=== PATIENT | female | born 1955 | race Caucasian/White ===

== ENCOUNTER 2023-09-18 08:48 | Inpatient (IN) ==
[2023-09-18] MEDS: 0.9 % SODIUM CHLORIDE 500 ML IV ONE ×3 (09:20→10:46)
[2023-09-18 09:45] LABS: Basophils # (Auto) 0.04 K/mcL (0.00-0.30); Basophils % (Auto) 0.4 % (0.0-2.0); Eosinophils # (Auto) 0.04 K/mcL (0.00-0.70); Eosinophils % (Auto) 0.4 % (0.0-7.0); Hematocrit 28.4 % (34.1-44.9); Hemoglobin 9.1 g/dL (11.2-15.7); Lymphocytes # (Auto) 1.49 K/mcL (1.50-4.80); Lymphocytes % (Auto) 16.4 % (15.5-49.0); Mean Cell Volume 120.9 fL (80.0-100.0); Mean Platelet Volume 10.8 fL (8.8-12.5); Monocytes # (Auto) 1.56 K/mcL (0.10-0.90); Monocytes % (Auto) 17.2 % (1.0-12.0); Platelet Count 156 K/mcL (140-440); RBC 2.35 M/mcL (3.59-5.38); Red Cell Distribution Width 17.3 % (11.5-14.5); WBC 9.1 K/mcL (4.5-11.0)
[2023-09-18 09:53] LABS: ALT/SGPT 115 U/L (<40); AST/SGOT 70 U/L (<32); Albumin/Globulin Ratio 1.5 (1.0-2.3); Alkaline Phosphatase 115 U/L (39-117); Bilirubin,Total 1.1 mg/dL (0.1-1.0); Blood Urea Nitrogen 32 mg/dL (8-23); Calcium 9.7 mg/dL (8.6-10.4); Carbon Dioxide 12 mmol/L (22-30); Chloride 79 mmol/L (96-108); Globulin 2.7 gm/dL (2.2-3.7); Glomerular Filtration Rate 27; Glucose 102 mg/dL (70-105)
[2023-09-18 10:04] LABS: Alcohol, Blood < 10.1 mg/dL; Alcohol,Blood < 0.010 gm/dL (<0.010)
[2023-09-18 10:32] LABS: INR 2.6 (0.9-1.1); Prothrombin Time 28.7 sec (11.9-14.5)
[2023-09-18] MEDS: THIAMINE 500 MG in 0.9 % SODIUM CHLORIDE 50 ML IV ONE (11:00)
[2023-09-18] MEDS: 0.9 % SODIUM CHLORIDE 1,000 ML IV ONE ×2 (11:54→14:46)
[2023-09-18] MEDS: PIPERACILLIN SODIUM/TAZOBACTAM 3.375 GM in DEXTROSE 5% IN WATER 50 ML IV ONE (12:00)
[2023-09-18] MEDS: VANCOMYCIN PER PHARMACY IV ONE (12:16)
[2023-09-18] MEDS: VANCOMYCIN 1,000 MG in 0.9 % SODIUM CHLORIDE 250 ML IV SCH (12:40)
[2023-09-18] MEDS: 0.9 % SODIUM CHLORIDE 250 ML ONE (12:40)
[2023-09-18] MEDS: NOREPINEPHRINE BITARTRATE 8 MG in 0.9 % SODIUM CHLORIDE 242 ML IV SCH ×2 (12:40→14:33)
[2023-09-18] MEDS: 0.9 % SODIUM CHLORIDE 250 ML IV SCH ×6 (13:14→20:30)
[2023-09-18 13:44] LABS: Basophils # (Auto) 0.02 K/mcL (0.00-0.30); Basophils % (Auto) 0.2 % (0.0-2.0); Eosinophils # (Auto) 0.04 K/mcL (0.00-0.70); Eosinophils % (Auto) 0.5 % (0.0-7.0); Hematocrit 24.7 % (34.1-44.9); Hemoglobin 7.8 g/dL (11.2-15.7); Lymphocytes # (Auto) 1.24 K/mcL (1.50-4.80); Lymphocytes % (Auto) 14.3 % (15.5-49.0); Mean Cell Volume 122.3 fL (80.0-100.0); Mean Corpuscular HGB Conc 31.6 g/dL (31.0-36.0); Mean Platelet Volume 10.4 fL (8.8-12.5); Monocytes # (Auto) 1.81 K/mcL (0.10-0.90); Monocytes % (Auto) 20.9 % (1.0-12.0); Neutrophils % (Auto) 59.3 % (38.0-78.0); Platelet Count 134 K/mcL (140-440); RBC 2.02 M/mcL (3.59-5.38); Red Cell Distribution Width 17.2 % (11.5-14.5); WBC 8.7 K/mcL (4.5-11.0)
[2023-09-18 14:16] LABS: Thyroid Stimulating Hormone 8.95 uIU/mL (0.27-5.01)
[2023-09-18] MEDS ORDERED: ONDANSETRON 4 MG/2 ML VIAL IV PRN (14:22)
[2023-09-18] MEDS: 0.9 % SODIUM CHLORIDE 1,000 ML IV SCH (14:45)
[2023-09-18] MEDS: PANTOPRAZOLE 40 MG VIAL IV SCH (14:45)
[2023-09-18] MEDS: 0.9 % SODIUM CHLORIDE 10 ML SYRINGE IV SCH (14:45)
[2023-09-18 15:06] LABS: Iron 87 ug/dL (37-145)
[2023-09-18 15:07] LABS: Haptoglobin 152 mg/dL (30-200)
[2023-09-18 15:09] LABS: Lactate Dehydrogenase 761 U/L (135-225)
[2023-09-18 16:21] LABS: Beta Hydroxybutyrate 8.75 mmol/L (<0.27)
[2023-09-18] MEDS: PANTOPRAZOLE 80 MG in 0.9 % SODIUM CHLORIDE 100 ML IV SCH (16:35)
[2023-09-18] MEDS: CYANOCOBALAMIN 1,000 MCG/ML VIAL SQ SCH (17:57)
[2023-09-18 20:49] LABS: Appearance,Urine Clear (Clear); Bacteria,Urine Few /hpf (0); Bilirubin,Urine Large mg/dL (Negative); Color,Urine Yellow; Culture Indicated,Urine Yes; Glucose,Urine (UA) 100 mg/dL (Negative); Ketones,Urine 80 mg/dL (Negative); Leukocyte Esterase,Urine Negative /uL (Negative); Nitrate,Urine Negative (Negative); PH,Urine 5.5 (5.0-9.0); Protein,Urine 100 mg/dL (Negative); Specific Gravity,Urine 1.025 (1.000-1.035); Urine Blood Moderate ery/mcL (Negative); Urine RBC 12 /hpf (0-3); Urine Renal Epithelial Cells 2 /hpf (0-2); Urine Squamous Epithelial Cell 4 /hpf (0-4); Urine WBC 4 /hpf (0-4); Urobilinogen,Urine Normal
[2023-09-19] MEDS: 0.9 % SODIUM CHLORIDE 10 ML SYRINGE IV SCH (05:43)
[2023-09-19] MEDS: 0.9 % SODIUM CHLORIDE 250 ML IV SCH (05:43)
[2023-09-19 06:31] LABS: INR 1.6 (0.9-1.1); Prothrombin Time 19.6 sec (11.9-14.5)
[2023-09-19 06:42] LABS: ALT/SGPT 85 U/L (<40); AST/SGOT 49 U/L (<32); Albumin 3.2 gm/dL (3.2-5.2); Albumin/Globulin Ratio 1.4 (1.0-2.3); Alkaline Phosphatase 90 U/L (39-117); Bilirubin,Direct 0.5 mg/dL (<0.3); Bilirubin,Total 0.9 mg/dL (0.1-1.0); Blood Urea Nitrogen 18 mg/dL (8-23); Calcium 8.4 mg/dL (8.6-10.4); Carbon Dioxide 10 mmol/L (22-30); Chloride 99 mmol/L (96-108); Globulin 2.3 gm/dL (2.2-3.7); Glomerular Filtration Rate 52; Glucose 88 mg/dL (70-105); Lactate Dehydrogenase 736 U/L (135-225); Phosphorous 1.9 mg/dL (2.5-4.5); Triglycerides 88 mg/dL (<150)
[2023-09-19] MEDS ORDERED: VANCOMYCIN PER PHARMACY IV SCH (06:54)
[2023-09-19] MEDS: 0.9 % SODIUM CHLORIDE 1,000 ML IV SCH (07:13)
[2023-09-19] MEDS: SIMVASTATIN 40 MG TABLET PO SCH (08:31)
[2023-09-19] MEDS: CITALOPRAM 20 MG TABLET PO SCH (08:31)
[2023-09-19] MEDS: LEVOTHYROXINE 75 MCG TABLET PO SCH (08:32)
[2023-09-19] MEDS: FOLIC ACID/VITAMIN B COMP W-C 1 TAB TABLET PO SCH (08:38)
[2023-09-19 09:14] LABS: Blood Urea Nitrogen 16 mg/dL (8-23); Carbon Dioxide 13 mmol/L (22-30); Chloride 99 mmol/L (96-108); Glomerular Filtration Rate 52; Glucose 84 mg/dL (70-105)
[2023-09-19] MEDS: cefTRIAXone 2 GM in DEXTROSE 5% IN WATER 50 ML IV SCH (09:42)
[2023-09-19] MEDS: POTASSIUM CHLORIDE 20 MEQ in DEXTROSE 5% IN WATER 250 ML IV SCH (09:42)
[2023-09-19] MEDS: THIAMINE 100 MG in 0.9 % SODIUM CHLORIDE 50 ML IV SCH (10:22)
[2023-09-19 12:45] LABS: ABG Methemoglobin 0.3 % (0.4-1.5); Total Hemoglobin 12.5 gm/Dl (12.0-15.0); VBG Base Excess -10 (-2-3); VBG Oxygen Saturation 89.3 % (40.0-70.0); VBG PCO2 31.6 mmHg (41.0-51.0); VBG PH 7.29 U (7.32-7.42); VBG PO2 72.3 mmHg (25.0-40.0); VBG Total CO2 15.9 mmol/L (25.0-29.0)
[2023-09-19] MEDS ORDERED: VANCOMYCIN 1,000 MG in 0.9 % SODIUM CHLORIDE 250 ML IV SCH (13:00)
[2023-09-19] MEDS: LORazepam 2 MG/ML VIAL IV PRN (21:19)
[2023-09-20 05:55] LABS: Basophils # (Auto) 0.06 K/mcL (0.00-0.30); Basophils % (Auto) 0.5 % (0.0-2.0); Eosinophils # (Auto) 0.22 K/mcL (0.00-0.70); Eosinophils % (Auto) 1.9 % (0.0-7.0); Hematocrit 31.4 % (34.1-44.9); Hemoglobin 10.6 g/dL (11.2-15.7); Lymphocytes # (Auto) 1.51 K/mcL (1.50-4.80); Mean Cell Volume 107.9 fL (80.0-100.0); Mean Corpuscular HGB Conc 33.8 g/dL (31.0-36.0); Monocytes # (Auto) 2.66 K/mcL (0.10-0.90); Monocytes % (Auto) 22.9 % (1.0-12.0); Neutrophils % (Auto) 52.6 % (38.0-78.0); Platelet Count 139 K/mcL (140-440); RBC 2.91 M/mcL (3.59-5.38)
[2023-09-20 06:18] LABS: ALT/SGPT 67 U/L (<40); AST/SGOT 36 U/L (<32); Albumin/Globulin Ratio 1.4 (1.0-2.3); Alkaline Phosphatase 80 U/L (39-117); Bilirubin,Total 0.5 mg/dL (0.1-1.0); Blood Urea Nitrogen 9 mg/dL (8-23); Calcium 8.3 mg/dL (8.6-10.4); Carbon Dioxide 18 mmol/L (22-30); Chloride 106 mmol/L (96-108); Globulin 2.1 gm/dL (2.2-3.7); Glomerular Filtration Rate 89; Glucose 97 mg/dL (70-105)
[2023-09-20 06:20] LABS: INR 1.1 (0.9-1.1); Prothrombin Time 15.1 sec (11.9-14.5)
[2023-09-20 07:47] LABS: Phosphorous 1.3 mg/dL (2.5-4.5)
[2023-09-20] MEDS: CEFDINIR 300 MG CAPSULE PO SCH (08:05)
[2023-09-20] MEDS: DOXYCYCLINE HYCLATE 100 MG TABLET.ORL PO SCH (08:05)
[2023-09-20] MEDS: POTASSIUM CHLORIDE 20 MEQ TABLET PO SCH (08:05)
[2023-09-20 08:23] LABS: WBC 11.6 K/mcL (4.5-11.0)
[2023-09-20] MEDS: POTASSIUM PHOSPHATE 40 MEQ in DEXTROSE 5% IN WATER 500 ML IV SCH (11:20)
[2023-09-20] MEDS: LOPERAMIDE 2 MG CAPSULE PO SCH (16:22)
[2023-09-20] MEDS: hydrOXYzine 25 MG TABLET PO SCH (21:47)
[2023-09-21 06:12] LABS: ALT/SGPT 70 U/L (<40); AST/SGOT 38 U/L (<32); Albumin 3.4 gm/dL (3.2-5.2); Albumin/Globulin Ratio 1.4 (1.0-2.3); Alkaline Phosphatase 90 U/L (39-117); Bilirubin,Total 0.6 mg/dL (0.1-1.0); Blood Urea Nitrogen 5 mg/dL (8-23); Carbon Dioxide 21 mmol/L (22-30); Chloride 105 mmol/L (96-108); Globulin 2.4 gm/dL (2.2-3.7); Glomerular Filtration Rate 94; Glucose 97 mg/dL (70-105)
[2023-09-21 06:34] LABS: Basophils # (Auto) 0.07 K/mcL (0.00-0.30); Basophils % (Auto) 0.6 % (0.0-2.0); Eosinophils # (Auto) 0.27 K/mcL (0.00-0.70); Eosinophils % (Auto) 2.4 % (0.0-7.0); Hematocrit 35.4 % (34.1-44.9); Hemoglobin 11.8 g/dL (11.2-15.7); Lymphocytes # (Auto) 2.25 K/mcL (1.50-4.80); Lymphocytes % (Auto) 19.7 % (15.5-49.0); Mean Cell Volume 106.9 fL (80.0-100.0); Mean Corpuscular HGB Conc 33.3 g/dL (31.0-36.0); Mean Platelet Volume 10.4 fL (8.8-12.5); Monocytes # (Auto) 2.18 K/mcL (0.10-0.90); Monocytes % (Auto) 19.1 % (1.0-12.0); Neutrophils % (Auto) 46.4 % (38.0-78.0); Platelet Count 168 K/mcL (140-440); RBC 3.31 M/mcL (3.59-5.38); Red Cell Distribution Width 23.8 % (11.5-14.5); WBC 11.4 K/mcL (4.5-11.0)
[2023-09-21 06:42] LABS: INR 1.1 (0.9-1.1); Prothrombin Time 14.5 sec (11.9-14.5)
[2023-09-21] MEDS: PANTOPRAZOLE 40 MG TABLET PO SCH (07:47)
[2023-09-21] MEDS: MAGNESIUM SULFATE 1 GM/100 ML BAG IV ONE (10:05)
[2023-09-21] MEDS: THIAMINE 100 MG TABLET PO SCH (10:06)
[2023-09-21] MEDS: APIXABAN 5 MG TABLET PO SCH (10:06)
[2023-09-21] MEDS: SODIUM PHOSPHATE 30 MMOL in DEXTROSE 5% IN WATER 500 ML IV ONE (11:07)
[2023-09-22 06:36] LABS: Basophils # (Auto) 0.06 K/mcL (0.00-0.30); Basophils % (Auto) 0.7 % (0.0-2.0); Eosinophils # (Auto) 0.19 K/mcL (0.00-0.70); Eosinophils % (Auto) 2.1 % (0.0-7.0); Hematocrit 35.2 % (34.1-44.9); Hemoglobin 11.6 g/dL (11.2-15.7); Lymphocytes # (Auto) 1.46 K/mcL (1.50-4.80); Lymphocytes % (Auto) 15.9 % (15.5-49.0); Mean Cell Volume 108.3 fL (80.0-100.0); Mean Platelet Volume 10.4 fL (8.8-12.5); Monocytes # (Auto) 1.88 K/mcL (0.10-0.90); Monocytes % (Auto) 20.5 % (1.0-12.0); Platelet Count 173 K/mcL (140-440); RBC 3.25 M/mcL (3.59-5.38); WBC 9.2 K/mcL (4.5-11.0)
[2023-09-22 07:02] LABS: ALT/SGPT 59 U/L (<40); AST/SGOT 38 U/L (<32); Albumin 3.3 gm/dL (3.2-5.2); Albumin/Globulin Ratio 1.4 (1.0-2.3); Alkaline Phosphatase 84 U/L (39-117); Bilirubin,Total 0.5 mg/dL (0.1-1.0); Blood Urea Nitrogen 3 mg/dL (8-23); Calcium 8.9 mg/dL (8.6-10.4); Carbon Dioxide 22 mmol/L (22-30); Chloride 105 mmol/L (96-108); Globulin 2.4 gm/dL (2.2-3.7); Glomerular Filtration Rate 100; Glucose 96 mg/dL (70-105)
== END 2023-09-22 12:05 | DRG 872 ==
LOC: ED 08:48 → ICU 14:06
PROVIDERS: ADMIT Internal Medicine; ATTEND Student in an Organized Health Care Education/Training Program

== ENCOUNTER 2023-12-17 18:32 | Inpatient (IN) ==
[2023-12-17 20:33] LABS: Basophils # (Auto) 0.02 K/mcL (0.00-0.30); Basophils % (Auto) 0.1 % (0.0-2.0); Eosinophils # (Auto) 0.01 K/mcL (0.00-0.70); Eosinophils % (Auto) 0 % (0.0-7.0); Hematocrit 34.8 % (34.1-44.9); Lymphocytes % (Auto) 1.8 % (15.5-49.0); Mean Corpuscular HGB Conc 34.5 g/dL (31.0-36.0); Mean Platelet Volume 10.2 fL (8.8-12.5); Monocytes # (Auto) 2.76 K/mcL (0.10-0.90); Monocytes % (Auto) 7.2 % (1.0-12.0); Neutrophils % (Auto) 88.9 % (38.0-78.0); Platelet Count 315 K/mcL (140-440); RBC 3.38 M/mcL (3.59-5.38); Red Cell Distribution Width 12.6 % (11.5-14.5); WBC 38.2 K/mcL (4.5-11.0)
[2023-12-17 20:42] LABS: Alcohol, Blood < 10.1 mg/dL; Alcohol,Blood < 0.010 gm/dL (<0.010)
[2023-12-17 20:44] LABS: ALT/SGPT 7 U/L (<40); AST/SGOT 20 U/L (<32); Albumin 3.5 gm/dL (3.2-5.2); Albumin/Globulin Ratio 1.1 (1.0-2.3); Alkaline Phosphatase 105 U/L (39-117); Bilirubin,Total 0.7 mg/dL (0.1-1.0); Blood Urea Nitrogen 17 mg/dL (8-23); Calcium 9.2 mg/dL (8.6-10.4); Carbon Dioxide 22 mmol/L (22-30); Chloride 83 mmol/L (96-108); Creatine Kinase 50 U/L (24-170); Globulin 3.1 gm/dL (2.2-3.7); Glomerular Filtration Rate 42; Glucose 144 mg/dL (70-105); Potassium 3.8 mmol/L (3.3-5.1); Sodium 122 mmol/L (133-145); Thyroid Stimulating Hormone 4.74 uIU/mL (0.27-5.01)
[2023-12-17 21:04] LABS: INR 2.2 (0.9-1.1); Prothrombin Time 24.9 sec (11.9-14.5)
[2023-12-17] MEDS ORDERED: IPRATROPIUM/ALBUTEROL 3 ML AMPUL.NEB NEB PRN (23:58)
[2023-12-18] MEDS: 0.9 % SODIUM CHLORIDE 1,000 ML IV SCH (00:25)
[2023-12-18] MEDS: ONDANSETRON 4 MG/2 ML VIAL ONE (01:04)
[2023-12-18] MEDS: ONDANSETRON 4 MG/2 ML VIAL IV PRN (01:04)
[2023-12-18] MEDS: 0.9 % SODIUM CHLORIDE 10 ML SYRINGE IV SCH (05:59)
[2023-12-18 07:10] LABS: Basophils # (Auto) 0.03 K/mcL (0.00-0.30); Basophils % (Auto) 0.1 % (0.0-2.0); Eosinophils # (Auto) 0.03 K/mcL (0.00-0.70); Eosinophils % (Auto) 0.1 % (0.0-7.0); Hematocrit 29.9 % (34.1-44.9); Lymphocytes # (Auto) 0.78 K/mcL (1.50-4.80); Lymphocytes % (Auto) 2.8 % (15.5-49.0); Mean Cell Volume 105.3 fL (80.0-100.0); Mean Corpuscular HGB Conc 33.4 g/dL (31.0-36.0); Mean Platelet Volume 9.9 fL (8.8-12.5); Monocytes # (Auto) 2.07 K/mcL (0.10-0.90); Monocytes % (Auto) 7.5 % (1.0-12.0); Neutrophils % (Auto) 88.4 % (38.0-78.0); Platelet Count 272 K/mcL (140-440); RBC 2.84 M/mcL (3.59-5.38); Red Cell Distribution Width 12.6 % (11.5-14.5); WBC 27.5 K/mcL (4.5-11.0)
[2023-12-18 07:32] LABS: Blood Urea Nitrogen 15 mg/dL (8-23); Calcium 8.3 mg/dL (8.6-10.4); Carbon Dioxide 24 mmol/L (22-30); Chloride 90 mmol/L (96-108); Glomerular Filtration Rate 76; Glucose 97 mg/dL (70-105); Potassium 3.1 mmol/L (3.3-5.1); Sodium 124 mmol/L (133-145)
[2023-12-18] MEDS ORDERED: CITALOPRAM 10 MG TABLET PO SCH (09:00)
[2023-12-18] MEDS: APIXABAN 5 MG TABLET PO SCH (09:14)
[2023-12-18] MEDS: CARVEDILOL 3.125 MG TABLET PO SCH (09:14)
[2023-12-18] MEDS: VANCOMYCIN 125 MG CAPSULE PO SCH (09:14)
[2023-12-18] MEDS: LEVOTHYROXINE 125 MCG TABLET PO SCH (09:14)
[2023-12-18] MEDS: SIMVASTATIN 40 MG TABLET PO SCH (09:14)
[2023-12-18] MEDS: CITALOPRAM 20 MG TABLET PO SCH (09:15)
[2023-12-18 13:04] LABS: Blood Urea Nitrogen 13 mg/dL (8-23); Calcium 8.3 mg/dL (8.6-10.4); Carbon Dioxide 25 mmol/L (22-30); Chloride 90 mmol/L (96-108); Glomerular Filtration Rate 89; Glucose 99 mg/dL (70-105); Potassium 3.1 mmol/L (3.3-5.1); Sodium 124 mmol/L (133-145)
[2023-12-18] MEDS: POTASSIUM CHLORIDE 20 MEQ PACKET PO SCH (17:27)
[2023-12-18 18:34] LABS: Blood Urea Nitrogen 12 mg/dL (8-23); Calcium 8.1 mg/dL (8.6-10.4); Carbon Dioxide 24 mmol/L (22-30); Chloride 92 mmol/L (96-108); Glomerular Filtration Rate 94; Glucose 101 mg/dL (70-105); Potassium 3.4 mmol/L (3.3-5.1); Sodium 125 mmol/L (133-145)
[2023-12-19 01:42] LABS: Blood Urea Nitrogen 10 mg/dL (8-23); Carbon Dioxide 22 mmol/L (22-30); Chloride 94 mmol/L (96-108); Glomerular Filtration Rate 94; Glucose 96 mg/dL (70-105); Potassium 3.4 mmol/L (3.3-5.1); Sodium 125 mmol/L (133-145)
[2023-12-19 06:50] LABS: Basophils # (Auto) 0.04 K/mcL (0.00-0.30); Basophils % (Auto) 0.2 % (0.0-2.0); Eosinophils # (Auto) 0.12 K/mcL (0.00-0.70); Eosinophils % (Auto) 0.6 % (0.0-7.0); Hematocrit 32.2 % (34.1-44.9); Hemoglobin 10.5 g/dL (11.2-15.7); Lymphocytes # (Auto) 1.33 K/mcL (1.50-4.80); Mean Cell Volume 108.1 fL (80.0-100.0); Mean Corpuscular HGB Conc 32.6 g/dL (31.0-36.0); Mean Platelet Volume 9.8 fL (8.8-12.5); Monocytes # (Auto) 2.31 K/mcL (0.10-0.90); Monocytes % (Auto) 12.1 % (1.0-12.0); Neutrophils % (Auto) 79.3 % (38.0-78.0); Platelet Count 246 K/mcL (140-440); RBC 2.98 M/mcL (3.59-5.38); Red Cell Distribution Width 12.9 % (11.5-14.5)
[2023-12-19 06:55] LABS: Blood Urea Nitrogen 8 mg/dL (8-23); Calcium 7.9 mg/dL (8.6-10.4); Carbon Dioxide 23 mmol/L (22-30); Chloride 97 mmol/L (96-108); Glomerular Filtration Rate 99; Glucose 82 mg/dL (70-105); Potassium 3.1 mmol/L (3.3-5.1); Sodium 129 mmol/L (133-145)
[2023-12-19] MEDS: POTASSIUM CHLORIDE 20 MEQ PACKET PO SCH (08:52)
[2023-12-19] MEDS: POTASSIUM CHLORIDE 20 MEQ PACKET ONE (08:53)
[2023-12-19 09:31] LABS: Appearance,Urine Clear (Clear); Bacteria,Urine Few /hpf (0); Bilirubin,Urine Negative (Negative); Color,Urine Yellow; Culture Indicated,Urine No; Glucose,Urine (UA) Negative (Negative); Ketones,Urine Negative (Negative); Leukocyte Esterase,Urine Negative /uL (Negative); Nitrate,Urine Negative (Negative); PH,Urine 6.5 (5.0-9.0); Protein,Urine Negative (Negative); Urine Blood Trace-intact ery/mcL (Negative); Urine RBC 0 /hpf (0-3); Urine Squamous Epithelial Cell 8 /hpf (0-4); Urine WBC 0 /hpf (0-4); Urobilinogen,Urine Normal
[2023-12-19 13:17] LABS: Blood Urea Nitrogen 9 mg/dL (8-23); Calcium 8.4 mg/dL (8.6-10.4); Carbon Dioxide 24 mmol/L (22-30); Chloride 97 mmol/L (96-108); Glomerular Filtration Rate 94; Glucose 137 mg/dL (70-105); Potassium 3.5 mmol/L (3.3-5.1); Sodium 128 mmol/L (133-145)
[2023-12-19] MEDS: SODIUM CHLORIDE 1 GM TABLET PO SCH (14:53)
[2023-12-20] MEDS: ACETAMINOPHEN 325 MG TABLET PO PRN (03:04)
[2023-12-20 06:48] LABS: Basophils # (Auto) 0.05 K/mcL (0.00-0.30); Basophils % (Auto) 0.5 % (0.0-2.0); Eosinophils # (Auto) 0.13 K/mcL (0.00-0.70); Eosinophils % (Auto) 1.3 % (0.0-7.0); Hematocrit 31.5 % (34.1-44.9); Lymphocytes # (Auto) 1.14 K/mcL (1.50-4.80); Lymphocytes % (Auto) 11.8 % (15.5-49.0); Mean Cell Volume 109.4 fL (80.0-100.0); Mean Corpuscular HGB Conc 31.7 g/dL (31.0-36.0); Mean Platelet Volume 9.8 fL (8.8-12.5); Monocytes # (Auto) 1.15 K/mcL (0.10-0.90); Monocytes % (Auto) 11.9 % (1.0-12.0); Neutrophils % (Auto) 73.5 % (38.0-78.0); Platelet Count 260 K/mcL (140-440); RBC 2.88 M/mcL (3.59-5.38); Red Cell Distribution Width 12.9 % (11.5-14.5); WBC 9.7 K/mcL (4.5-11.0)
[2023-12-20 07:20] LABS: ALT/SGPT 7 U/L (<40); AST/SGOT 21 U/L (<32); Albumin 2.4 gm/dL (3.2-5.2); Alkaline Phosphatase 77 U/L (39-117); Bilirubin,Direct < 0.2 mg/dL (0-0.3); Bilirubin,Total 0.3 mg/dL (0.1-1.0); Blood Urea Nitrogen 8 mg/dL (8-23); Calcium 8.4 mg/dL (8.6-10.4); Carbon Dioxide 23 mmol/L (22-30); Chloride 102 mmol/L (96-108); Globulin 2.3 gm/dL (2.2-3.7); Glomerular Filtration Rate 99; Glucose 98 mg/dL (70-105); Lactate Dehydrogenase 161 U/L (135-225); Phosphorous 1.7 mg/dL (2.5-4.5); Sodium 132 mmol/L (133-145); Triglycerides 67 mg/dL (<150); Uric Acid 3.9 mg/dL (2.5-8.0)
[2023-12-20] MEDS: METOPROLOL TARTRATE 25 MG TABLET PO SCH (08:04)
[2023-12-20] MEDS: SODIUM PHOSPHATE 30 MMOL in DEXTROSE 5% IN WATER 500 ML IV SCH (10:30)
[2023-12-21 06:30] LABS: ALT/SGPT 7 U/L (<40); AST/SGOT 17 U/L (<32); Albumin 2.4 gm/dL (3.2-5.2); Albumin/Globulin Ratio 1.1 (1.0-2.3); Alkaline Phosphatase 74 U/L (39-117); Bilirubin,Direct < 0.2 mg/dL (0-0.3); Bilirubin,Total < 0.2 mg/dL (0.1-1.0); Blood Urea Nitrogen 6 mg/dL (8-23); Calcium 8.2 mg/dL (8.6-10.4); Carbon Dioxide 25 mmol/L (22-30); Chloride 102 mmol/L (96-108); Globulin 2.2 gm/dL (2.2-3.7); Glomerular Filtration Rate 94; Glucose 107 mg/dL (70-105); Lactate Dehydrogenase 100 U/L (135-225); Phosphorous 2.8 mg/dL (2.5-4.5); Potassium 3.6 mmol/L (3.3-5.1); Sodium 134 mmol/L (133-145); Triglycerides 61 mg/dL (<150); Uric Acid 3.6 mg/dL (2.5-8.0)
[2023-12-21] MEDS: MAGNESIUM SULFATE 2 GM/50 ML BAG IV ONE (08:53)
== END 2023-12-21 13:22 | DRG 372 ==
LOC: ED 18:32 → ICU 23:52
PROVIDERS: ADMIT Internal Medicine; ATTEND Internal Medicine

== ENCOUNTER 2024-07-17 00:31 | Observation (INO) ==
[2024-07-17] MEDS ORDERED: IOPAMIDOL 100 ML BOTTLE IV ONE (00:32)
[2024-07-17] MEDS: ACETAMINOPHEN 325 MG TABLET PO ONE (01:02)
[2024-07-17] MEDS: predniSONE 20 MG TABLET PO ONE (01:04)
[2024-07-17 01:14] LABS: Basophils # (Auto) 0.07 K/mcL (0.00-0.30); Basophils % (Auto) 0.3 % (0.0-2.0); Eosinophils # (Auto) 0.33 K/mcL (0.00-0.70); Eosinophils % (Auto) 1.4 % (0.0-7.0); Hematocrit 44.6 % (34.1-44.9); Hemoglobin 14.3 g/dL (11.2-15.7); Lymphocytes # (Auto) 1.11 K/mcL (1.50-4.80); Lymphocytes % (Auto) 4.6 % (15.5-49.0); Mean Corpuscular HGB Conc 32.1 g/dL (31.0-36.0); Mean Platelet Volume 10.5 fL (8.8-12.5); Monocytes # (Auto) 1.84 K/mcL (0.10-0.90); Monocytes % (Auto) 7.5 % (1.0-12.0); Neutrophils % (Auto) 85.7 % (38.0-78.0); Platelet Count 337 K/mcL (140-440); RBC 4.13 M/mcL (3.59-5.38); WBC 24.4 K/mcL (4.5-11.0)
[2024-07-17] MEDS: IPRATROPIUM/ALBUTEROL 3 ML AMPUL.NEB NEB ONE ×2 (01:15→04:43)
[2024-07-17 01:37] LABS: Blood Urea Nitrogen 7 mg/dL (8-23); Calcium 9.6 mg/dL (8.6-10.4); Carbon Dioxide 21 mmol/L (22-30); Chloride 103 mmol/L (96-108); Glomerular Filtration Rate 107; Glucose 107 mg/dL (70-105); Potassium 3.9 mmol/L (3.3-5.1); Sodium 140 mmol/L (133-145)
[2024-07-17 08:08] LABS: ABG Methemoglobin 0.3 % (0.4-1.5); Total Hemoglobin 15.1 gm/Dl (12.0-15.0); VBG Base Excess 1 (-2-3); VBG HCO3 22.6 mmol/L (24.0-28.0); VBG Oxygen Saturation 86.3 % (40.0-70.0); VBG PCO2 29.6 mmHg (41.0-51.0); VBG PO2 61.7 mmHg (25.0-40.0); VBG Total CO2 23.5 mmol/L (25.0-29.0)
[2024-07-17 08:19] LABS: C-Reactive Protein 3.31 mg/dL (0.03-0.80)
[2024-07-17] MEDS: LEVOTHYROXINE 125 MCG TABLET PO SCH (08:46)
[2024-07-17] MEDS: CITALOPRAM 20 MG TABLET PO SCH (08:47)
[2024-07-17] MEDS: METOPROLOL TARTRATE 25 MG TABLET PO SCH (08:47)
[2024-07-17] MEDS: APIXABAN 5 MG TABLET PO SCH (08:47)
[2024-07-17] MEDS ORDERED: CITALOPRAM 10 MG TABLET PO SCH (09:00)
[2024-07-17] MEDS ORDERED: ONDANSETRON 4 MG/2 ML VIAL IV PRN (10:54)
[2024-07-17] MEDS ORDERED: ALBUTEROL SULFATE 2.5 MG/3 ML NEBULIZER NEB PRN (10:54)
[2024-07-17] MEDS: ACETAMINOPHEN 325 MG TABLET PO PRN (13:02)
[2024-07-17] MEDS: 0.9 % SODIUM CHLORIDE 10 ML SYRINGE IV SCH (16:14)
[2024-07-17] MEDS: SENNOSIDES 1 TABLET PO SCH (20:45)
[2024-07-17] MEDS ORDERED: OXYBUTYNIN CHLORIDE 5 MG TABLET PO SCH (21:00)
[2024-07-18 05:31] LABS: Basophils # (Auto) 0.02 K/mcL (0.00-0.30); Basophils % (Auto) 0.1 % (0.0-2.0); Eosinophils % (Auto) 0.6 % (0.0-7.0); Hematocrit 38.6 % (34.1-44.9); Hemoglobin 12.3 g/dL (11.2-15.7); Lymphocytes # (Auto) 2.28 K/mcL (1.50-4.80); Lymphocytes % (Auto) 14.1 % (15.5-49.0); Mean Corpuscular HGB Conc 31.9 g/dL (31.0-36.0); Monocytes # (Auto) 1.51 K/mcL (0.10-0.90); Monocytes % (Auto) 9.4 % (1.0-12.0); Neutrophils % (Auto) 75.2 % (38.0-78.0); Platelet Count 301 K/mcL (140-440); RBC 3.51 M/mcL (3.59-5.38); WBC 16.1 K/mcL (4.5-11.0)
[2024-07-18 05:50] LABS: ALT/SGPT 8 U/L (<40); AST/SGOT 15 U/L (<32); Albumin 3.5 gm/dL (3.2-5.2); Albumin/Globulin Ratio 1.1 (1.0-2.3); Alkaline Phosphatase 83 U/L (39-117); Bilirubin,Direct < 0.2 mg/dL (0-0.3); Bilirubin,Total < 0.2 mg/dL (0.1-1.0); Blood Urea Nitrogen 12 mg/dL (8-23); Calcium 9.6 mg/dL (8.6-10.4); Carbon Dioxide 25 mmol/L (22-30); Chloride 102 mmol/L (96-108); Globulin 3.3 gm/dL (2.2-3.7); Glomerular Filtration Rate 107; Glucose 104 mg/dL (70-105); Lactate Dehydrogenase 118 U/L (135-225); Phosphorous 2.8 mg/dL (2.5-4.5); Potassium 3.5 mmol/L (3.3-5.1); Sodium 138 mmol/L (133-145); Triglycerides 97 mg/dL (<150); Uric Acid 7.3 mg/dL (2.5-8.0)
[2024-07-18] MEDS: LEVOTHYROXINE 125 MCG TABLET PO SCH (08:20)
[2024-07-18 11:41] VITALS: TEMP 98.2; O2SAT 98
== END 2024-07-18 12:55 | disposition home or self-care (01) ==
LOC: MEDSUR 00:31 → ED 00:31 → MEDSUR 10:48 → INTOOBSV 10:48 → OBSVTOIN 10:48
PROVIDERS: ADMIT Internal Medicine; ATTEND Internal Medicine